=== PATIENT | female | born 1965 | race Caucasian/White ===

== ENCOUNTER → 2016-11-08 | Outpatient (CLI) | payer OTHER, BC ==
[2014-08-13 10:20] VITALS: BP 118/65
[~2016-11-08] MED LIST: ARIP2TAB PO; BIMA2.5D EACHEYE; BLAC200C PO; BUPR300T3 PO; BUSP30TA PO; CHOL10003 PO; CYCL10TA2 PO; ESCI20TA10 PO; FESO8TAB PO; HYDR-2678 PO; LIDO700A27 TP; MELA3TAB PO; METH54TA5 PO; OXYB10TA7 PO; PROAIR HFA8.5 GM INH; SERT100T PO; SERT100T8 PO; TRAZ150T55 PO; TRIA10.8 NS
[2016-11-08 14:35] LABS: BASO % 1 % (0-3); EOS % 3 % (0-3); HEMATOCRIT 35.4 % (36.0-47.0); LYMPH # 1.8 x10^3/uL (1.0-4.8); LYMPH % 30 % (24-48); MEAN CORPUSCULAR HEMOGLOBIN 31 pg (25-35); MEAN CORPUSCULAR HGB CONC 34 g/dL (31-37); MEAN CORPUSCULAR VOLUME 91 fL (79-100); MONO % 5 % (0-9); NEUT % 61 % (31-73); PLATELET COUNT 334 x10^3/uL (140-400); RED BLOOD COUNT 3.91 x10^6/uL (3.50-5.40); RED CELL DISTRIBUTION WIDTH 12.9 % (11.5-14.5); WHITE BLOOD COUNT 5.9 x10^3/uL (4.0-11.0)
[2016-11-08 15:05] LABS: CALCIUM 9.3 mg/dL (8.5-10.1); CREATININE 0.8 mg/dL (0.6-1.0); GFR 76.2; POTASSIUM 3.6 mmol/L (3.5-5.1)
== END | disposition home or self-care (01) ==
LOC: SURGPAT 13:23
PROVIDERS: ATTEND Urology
DX: Z01.812 Encounter for preprocedural laboratory examination (principal)
CPT/HCPCS: 36415; 80048; 85027

== ENCOUNTER 2016-11-13 06:50 | Day surgery (SDC) | payer OTHER, BC ==
--- NOTE | 2016-11-12 12:51 | HP ---
ADMIT DATE: The patient is coming in for operation on 11/13/2016 as an outpatient under general anesthesia. CHIEF COMPLAINT: Left ureteral stone. HISTORY OF PRESENT ILLNESS: The patient is a very pleasant 51-year-old female with 1 cm left distal ureteral stone with moderate hydroureteronephrosis. The patient has intermittent discomfort from the stone. I have discussed with the patient the options, alternatives, benefits, risks and possible complications of medical expulsive therapy versus ESWL versus left ureteroscopy with possible laser lithotripsy and possible left ureteral stent placement. The patient understands this and does wish to proceed with operation. PAST MEDICAL HISTORY: Significant for ADD, depression, asthma, and eczema. PAST SURGICAL HISTORY: Right foot surgery, hysterectomy with sling, and bladder neck suspension. MEDICATIONS: The patient is on Restora, Klonopin, and Toviaz. ALLERGIES: THE PATIENT WITH NO KNOWN DRUG ALLERGIES. REVIEW OF SYSTEMS: The patient with some intermittent left flank pain from her stone. PHYSICAL EXAMINATION: GENERAL: The patient is well-developed, well-nourished white female in no acute distress. HEENT: Normocephalic, atraumatic. NECK: Supple. CHEST: Clear to auscultation. CARDIOVASCULAR: Regular rate and rhythm. ABDOMEN: Soft, nontender. Just some mild left CVA discomfort. EXTREMITIES: Without clubbing, cyanosis or edema. NEUROLOGIC: Grossly intact. ASSESSMENT: A 1 cm left distal ureteral stone. PLAN: I discussed with the patient the options, alternatives, benefits, risks and possible complications of treatment including left ureteroscopy with possible laser lithotripsy and left ureteral stent placement. She understands this and does wish to proceed with operation and will therefore proceed accordingly. MILAGRO WOMACK MD DR: YURIY/sarah JOB#: [id number] / [id number]
[~2016-11-13] VITALS: Ht 165.1 cm; Wt 129.3 kg
[~2016-11-13 06:50] MED LIST changes: +CEFAZOLIN 2GM PREMIX 50 ML IV PRN
[2016-11-13] MEDS ORDERED: LIDOCAINE 1% 1 ML SYRINGE. ID PRN (07:00)
[2016-11-13] MEDS ORDERED: HYDROMORPHONE 2 MG/ML VIAL. IV PRN (07:00)
[2016-11-13] MEDS ORDERED: PROCHLORPERAZINE 10 MG/2 ML VIAL. IV PRN (07:00)
[2016-11-13] MEDS ORDERED: MORPHINE SULFATE 2 MG/ML DISP.SYRIN. IV PRN (07:00)
[2016-11-13] MEDS ORDERED: FENTANYL PF 100 MCG/2 ML VIAL. IV PRN ×2 (07:00)
[2016-11-13] MEDS ORDERED: IV RINGERS,LACTATED 1000ML 1,000 ML IV SCH (07:00)
[2016-11-13] MEDS ORDERED: LIDOCAINE 2% 100 MG/5 ML DISP.SYRIN. ONE (08:51)
[2016-11-13] MEDS ORDERED: PROPOFOL 20 ML IV ONE ×2 (08:51→10:12)
[2016-11-13] MEDS ORDERED: DEXAMETHASONE SOD PHOS 20 MG/5 ML VIAL. ONE (08:51)
[2016-11-13] MEDS ORDERED: FENTANYL PF 100 MCG/2 ML VIAL. ONE (08:52)
[2016-11-13] MEDS ORDERED: ONDANSETRON PF 4 MG/2 ML VIAL. ONE (08:52)
[2016-11-13] MEDS ORDERED: LIDOCAINE 2% JELLY 6ML IN APPLICATOR. ONE (09:45)
[2016-11-13] MEDS ORDERED: IOHEXOL 300 MG/ML 50 ML VIAL. ONE (09:46)
[2016-11-13] MEDS ORDERED: EPHEDRINE PF IN SALINE 50 MG/5 ML DISP.SYRIN. IV ONE ×2 (10:16→10:46)
[2016-11-13] MEDS ORDERED: PHENYLEPHRINE in 0.9% NACL PF 1 MG/10 ML DISP.SYRIN. IV ONE (10:20)
--- NOTE | 2016-11-13 11:35 | DISCH ---
DISCHARGE INSTRUCTIONS Condition on Discharge Condition on Discharge: Stable Activity After Discharge Activity Instructions for Disc: Activity as tolerated Diet after Discharge Diet after Discharge: Regular Contacting the DR. after DC Call your doctor for: If your condition worsens Follow-Up Follow up with: Follow up urology in 1-2 weeks for cysto and stent removal in the office MILAGRO WOMACK MD Nov 13, 2016 11:35
--- NOTE | 2016-11-13 11:37 | PDOC4 ---
Operative Note Operative Note pre-op dx-left ureteral stone procedure-cystoscopy, left ureteroscopy with laser lithotripsy and stone extraction and left ureteral stent placement surgeon-hannah lyon-general Pt. to PACU in stable condition MILAGRO WOMACK MD Nov 13, 2016 11:37
[2016-11-13 12:49] VITALS: BP 152/72
--- NOTE | 2016-11-13 15:03 | OP ---
DATE OF SURGERY: 11/13/2016 OPERATION: Cystoscopy, left retrograde pyelogram, left ureteroscopy with laser lithotripsy and stone extraction, left ureteral stent placement. SURGEON: Milagro Martinez M.D. ANESTHESIA: General. PREOPERATIVE DIAGNOSIS: Left ureteral stone. POSTOPERATIVE DIAGNOSIS: Left ureteral stone. INDICATIONS: The patient is a very pleasant 51-year-old white female with history of a 1 cm left distal ureteral stone with hydroureteronephrosis. I have discussed with the patient the options, alternatives, benefits, risks and possible complications of continued medical expulsive therapy versus surgical intervention with ESWL versus left ureteroscopy with possible laser lithotripsy and left ureteral stent placement. She understands this and does wish to proceed with the operation. DESCRIPTION OF PROCEDURE: After obtaining informed consent, the patient was taken to operating room after an excellent general anesthetic, the patient was placed in the dorsal lithotomy position. Groin was prepped and draped in sterile fashion. The patient was preloaded with IV antibiotics. Panendoscopy and cystoscopy were then performed with the 30 and 70 degree lenses on the 21-[place] [employer] cystoscope sheath. Bladder was entered and inspected. Both ureteral orifices were identified and found to be grossly patent. Bladder wall appeared smooth and ____ any lesions. No bladder tumors or bladder stones were identified. Left retrograde pyelogram was then performed. The patient noted to have filling defect in the left distal ureter approximately 3 cm above the left ureteral orifice consistent with the patient's stone with dilation of the ureter and renal pelvis above that level. Following this, floppy tipped ZIPwire was then passed up the left ureteral orifice up the left ureter past the stone to the left kidney. Following this, left distal ureter and ureteral orifice were then gently balloon dilated. Balloon dilator was then removed leaving the Zipwire in place as a safety wire. Following this, bladder was then drained. The cystoscope withdrawn from the patient. Following this, the thin rigid ureteroscope was then passed per urethra up alongside the ZIPwire up the left ureter to the level of the stone. Stone was seen to be brownish in color and 1 cm x 8 mm in dimensions. The stone was then treated with holmium laser fiber at a power setting of 0.5 and 10. Stone was fragmented in approximately 3 mm, fragments which were then removed under direct vision with the basket and sent for stone analysis. After all the significant stone fragments were removed from the left ureter, the ureter was inspected and found to be intact. A retrograde pyelogram showed ____ significant filling defects and therefore, the ureteroscope was withdrawn from the patient and then the cystoscope then replaced and then following this, a 6 x 26 double-J stent was then passed up the ZIPwire, placing one curl in the left kidney and the other curl in the bladder and the ZIPwire removed. Stent position was checked by fluoroscopy and direct vision, found to be in good position. Following this, bladder was then drained, cystoscope withdrawn from the patient. The patient tolerated the procedure very well, was taken to recovery room in stable condition. We will have the patient follow up in Urology office in 1-2 weeks for cystoscopy and stent removal. MILAGRO MARTINEZ MD DR: YURIY/sarah JOB#: [id number] / [id number]
[2016-11-18 17:13] LABS: CA OXALATE MONOHYDR 58 % (.); COLOR Brown (.)
== END 2016-11-13 13:13 | disposition home or self-care (01) ==
LOC: SURG 06:50
PROVIDERS: ATTEND Urology
DX: N20.1 Calculus of ureter (principal); J45.909 Unspecified asthma, uncomplicated; E66.9 Obesity, unspecified; Z90.710 Acquired absence of both cervix and uterus; M19.90 Unspecified osteoarthritis, unspecified site; F32.9 Major depressive disorder, single episode, unspecified
CPT/HCPCS: 52356; 76000; C1769; C2617; J0690; J1100; J2370; J2405; J2704; J3010; Q9967; 82365